=== PATIENT | female | born 1940 | race Caucasian/White ===

== ENCOUNTER 2019-03-09 06:37 | Day surgery (SDC) | payer MEDICARE ==
[~2019-03-09] VITALS: Ht 167.6 cm; Wt 53.6 kg
[~2019-03-09 06:37] MED LIST: ASPI81TA85 PO; LATA0.0015 OS; LIDOCAINE 2% W/EPIN INJ 20ML **PRES FREE As Ordered ONE; LOSA100T50 PO; METO1TAB87 PO; OYST1TAB PO; POVIDONE-IODINE 5% OPHTH PREP SOL 30ML As Ordered ONE; TIMO0.5S29 OS
[2019-03-09] MEDS ORDERED: fentaNYL 100 MCG/2 ML INJECTION (J3010) As Ordered ONE (06:52)
[2019-03-09] MEDS ORDERED: MIDAZOLAM INJ 2 MG/2 ML VIAL (J2250) As Ordered ONE (06:53)
[2019-03-09] MEDS ORDERED: PROPOFOL 200 MG/20 ML VIAL As Ordered ONE (06:53)
[2019-03-09] MEDS ORDERED: LIDOCAINE 3.5 % 1ML OPHTH TOPICAL GEL OU ONE (07:00)
[2019-03-09] MEDS: TOBRADEX OPHTH OINT 3.5 GM As Ordered ONE ×2 (08:30→08:42)
[2019-03-09] MEDS ORDERED: ONDANSETRON 4MG/2ML VIAL (J2405) As Ordered ONE (08:40)
[2019-03-09] MEDS ORDERED: CIPROFLOXACIN 0.3% OPHTH OINTMENT As Ordered ONE (08:48)
[2019-03-09] MEDS ORDERED: TOBRADEX OPHTH OINT 3.5 GM As Ordered ONE (09:07)
[2019-03-09 09:20] VITALS: BP 143/61
--- NOTE | 2019-03-09 11:47 | RO ---
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 PROCEDURE: Lateral tarsal strip along with tarsorrhaphy right lower lid. SURGEON: Ventura Mckoy MD WORK MEASUREMENT ENGINEER: None. COMPLICATIONS: None. PROCEDURE IN DETAIL: Patient was brought to the operating room, laid in supine position. The eye was prepped and draped in a sterile fashion for lid surgery, following which the lower eyelid lateral canthal area was marked with a sterile marker. 2% lidocaine with 1:100,000 epinephrine was then used to infiltrate the lower and the lateral canthal area. Electrocautery was used then to do a dissection, a lateral canthotomy. Hemostasis was obtained as necessary. A lateral tarsal strip was then created with the help of electrocautery and a #15 blade following which the #4-0 Prolene suture was used to reattach the lateral tarsal strip to the periosteum to reposition the lid in the desired position, following which both upper and lower lid margins were partially excised over the lateral third with the help of electrocautery to create a raw surface and six #5-0 nylon sutures were then used to close the entire wound in a vertical mattress suture because of the tension in the wound. The final lid position looked to be excellent. Ciloxan ointment and ice packs were applied and the patient was returned to the recovery room where detailed postop instructions were given.
== END 2019-03-09 09:29 | disposition home or self-care (01) ==
LOC: M SDC 06:37
PROVIDERS: ATTEND Ophthalmology
DX: H02.15 Paralytic ectropion of eyelid (principal); Z86.69 Personal history of other diseases of the nervous system and sense organs; I10 Essential (primary) hypertension; Z79.899 Other long term (current) drug therapy; F41.9 Anxiety disorder, unspecified; Z85.3 Personal history of malignant neoplasm of breast; Z92.3 Personal history of irradiation; Z92.21 Personal history of antineoplastic chemotherapy
CPT/HCPCS: 67924; J2250; J2405; J3010

== ENCOUNTER → 2022-06-02 | Outpatient (CLI) | payer MEDICARE ==
[~2022-06-02] MED LIST changes: +ALEN70TA82 PO; -ASPI81TA85 PO; +ASPI81TA86 PO; +BRIM0.2S13 OU; +CALC600T60 PO; +LATA0.0015 OU; -LIDOCAINE 2% W/EPIN INJ 20ML **PRES FREE As Ordered ONE; +LOSA100T45 PO; -LOSA100T50 PO; +LOSA50TA28 PO; -POVIDONE-IODINE 5% OPHTH PREP SOL 30ML As Ordered ONE; +VITMTA PO
== END ==
LOC: M LABSMTC 10:20
PROVIDERS: ATTEND Anesthesiology
DX: Z01.818 Encounter for other preprocedural examination (principal); Z11.52 Encounter for screening for COVID-19

== ENCOUNTER 2022-06-04 07:21 | Day surgery (SDC) | payer MEDICARE ==
[~2022-06-04] VITALS: Ht 167.6 cm; Wt 56.2 kg
[~2022-06-04 07:21] MED LIST changes: +BSS IRRIG/VANCO(10MG)/TOBRA(5MG)/EPINEPH(1:1000-0.5CC)500ML BAG-ORONLY IR ONE; +CEFUROXIME 1MG/0.1ML INTRACAMERAL INJ As Ordered ONE; +LIDOCAINE 1% SDV 5ML VIAL As Ordered ONE; +LIDOCAINE 3.5 % 1ML OPHTH TOPICAL GEL OU ONE; +OFLOXACIN 0.3 % (OCUFLOX) OPTH SOL 5ML OS ONE; +PHENYLEPHRINE HCL 10 % OPHTH. SOL 5ML OS PRN; +acetaZOLAMIDE 500MG ER CAP PO ONE
[2022-06-04] MEDS: PHENYLEPHRINE 2.5% OPHTH SOL 2ML OS SCH ×2 (10:20→10:24)
[2022-06-04] MEDS: TROPICAMIDE 1% OPHTH SOLN 2ML OS SCH ×2 (10:20→10:24)
[2022-06-04] MEDS: CYCLOPENTOLATE 1% OPHTH SOLN 2 ML BTL OS SCH ×2 (10:20→10:24)
[2022-06-04] MEDS ORDERED: MIDAZOLAM INJ 2MG/2ML VIAL (J2250 PER 1MG) As Ordered ONE (11:30)
[2022-06-04] MEDS ORDERED: fentaNYL 100 MCG/2 ML INJECTION As Ordered ONE (11:30)
[2022-06-04] MEDS ORDERED: ONDANSETRON 4MG 2ML VIAL As Ordered ONE (11:34)
[2022-06-04] MEDS ORDERED: propofoL 200 MG/20 ML VIAL As Ordered ONE (11:54)
[2022-06-04 12:40] VITALS: BP 191/82
[2022-06-04] MEDS ORDERED: ONDANSETRON 4MG TAB PO PRN (13:05)
[2022-06-04] MEDS ORDERED: ACETAMINOPHEN 325 MG TAB PO PRN (13:05)
== END 2022-06-04 12:45 | disposition home or self-care (01) ==
LOC: M SDC 07:21
PROVIDERS: ATTEND Ophthalmology
DX: H25.12 Age-related nuclear cataract, left eye (principal); H40.1110 Primary open-angle glaucoma, right eye, stage unspecified
CPT/HCPCS: 66988; 92015; C1783; J0697; J2250; J2405; J3010; V2788

== ENCOUNTER 2022-12-31 12:10 | Day surgery (SDC) | payer MEDICARE ==
[~2022-12-31] VITALS: Ht 167.6 cm; Wt 56.9 kg
[~2022-12-31 12:10] MED LIST changes: -BSS IRRIG/VANCO(10MG)/TOBRA(5MG)/EPINEPH(1:1000-0.5CC)500ML BAG-ORONLY IR ONE; -CEFUROXIME 1MG/0.1ML INTRACAMERAL INJ As Ordered ONE; -LIDOCAINE 1% SDV 5ML VIAL As Ordered ONE; +LIDOCAINE 2% W/EPINEPHRINE 20ML VIAL **PRES FREE As Ordered ONE; +LIDOCAINE PRES-FREE 2% 10ML AMP As Ordered ONE; -LOSA100T45 PO; +LOSA100T46 PO; -OFLOXACIN 0.3 % (OCUFLOX) OPTH SOL 5ML OS ONE; -PHENYLEPHRINE HCL 10 % OPHTH. SOL 5ML OS PRN; +TIMO0.5S20 OS; -TIMO0.5S29 OS; +TOBRADEX OPHTH OINT 3.5 GM As Ordered ONE; -acetaZOLAMIDE 500MG ER CAP PO ONE
[2022-12-31] MEDS ORDERED: fentaNYL 100 MCG/2 ML INJECTION As Ordered ONE (14:19)
[2022-12-31] MEDS ORDERED: MIDAZOLAM INJ 2MG/2ML VIAL As Ordered ONE (14:19)
[2022-12-31] MEDS ORDERED: POVIDONE-IODINE 5% OPHTH PREP SOL 30ML As Ordered ONE (14:40)
[2022-12-31 15:12] VITALS: BP 115/57
== END 2022-12-31 15:48 | disposition home or self-care (01) ==
LOC: M SDC 12:10
PROVIDERS: ATTEND Ophthalmology
DX: H02.112 Cicatricial ectropion of right lower eyelid (principal); H40.9 Unspecified glaucoma; I10 Essential (primary) hypertension; F41.9 Anxiety disorder, unspecified; Z92.21 Personal history of antineoplastic chemotherapy; Z92.3 Personal history of irradiation; Z85.3 Personal history of malignant neoplasm of breast; Z87.891 Personal history of nicotine dependence; Z88.8 Allergy status to other drugs, medicaments and biological substances; Z79.899 Other long term (current) drug therapy
CPT/HCPCS: 67715; 67917; J2250; J3010

== ENCOUNTER 2025-05-08 08:53 | Day surgery (SDC) | payer MEDICARE ==
[~2025-05-08] VITALS: Ht 167.6 cm; Wt 51.7 kg
[~2025-05-08 08:53] MED LIST changes: +LIDOCAINE 2% 100 MG/5 ML SDV (FOR ANES.) As Ordered ONE; -LIDOCAINE 2% W/EPINEPHRINE 20ML VIAL **PRES FREE As Ordered ONE; -LIDOCAINE 3.5 % 1ML OPHTH TOPICAL GEL OU ONE; -LIDOCAINE PRES-FREE 2% 10ML AMP As Ordered ONE; -TOBRADEX OPHTH OINT 3.5 GM As Ordered ONE; +XALA0.007 OU; +XARE20TA PO
[2025-05-08 10:45] VITALS: BP 149/66; O2SAT 98
== END 2025-05-08 10:50 | disposition home or self-care (01) ==
LOC: M OPP 08:53
PROVIDERS: ATTEND Internal Medicine Gastroenterology
DX: Z12.11 Encounter for screening for malignant neoplasm of colon (principal); K64.0 First degree hemorrhoids; K57.30 Diverticulosis of large intestine without perforation or abscess without bleeding; Z80.0 Family history of malignant neoplasm of digestive organs; I48.91 Unspecified atrial fibrillation; Z88.8 Allergy status to other drugs, medicaments and biological substances; Z79.01 Long term (current) use of anticoagulants; Z79.899 Other long term (current) drug therapy; Z87.891 Personal history of nicotine dependence

== ENCOUNTER → 2025-07-13 | Outpatient (CLI) | payer MEDICARE ==
[~2025-07-13] MED LIST changes: +LIDOCAINE 1% MDV 20 ML VIAL SC SCH; -LIDOCAINE 2% 100 MG/5 ML SDV (FOR ANES.) As Ordered ONE
[2025-07-13 08:11] VITALS: TEMP 97.6
[2025-07-13 09:10] VITALS: BP 136/61; O2SAT 98
[2025-07-13] MEDS: LIDOCAINE 1% MDV 20 ML VIAL SC SCH (09:41)
== END ==
LOC: M IRPRO 08:03
PROVIDERS: ATTEND Nurse Practitioner Family
DX: E04.2 Nontoxic multinodular goiter (principal)